=== PATIENT | male | born 1955 | race Caucasian/White ===

== ENCOUNTER 2018-06-13 08:04 | Emergency (ER) | payer OTHER, BC ==
[~2018-06-13] VITALS: Ht 177.8 cm; Wt 80.8 kg
[2018-06-13] MEDS ORDERED: ONDANSETRON ODT 4 MG ONE (08:29)
[2018-06-13] MEDS ORDERED: KETOROLAC 30 MG/1 ML ONE (08:29)
[2018-06-13] MEDS ORDERED: ONDANSETRON ODT 4 MG PO ONE (08:30)
[2018-06-13] MEDS ORDERED: KETOROLAC 30 MG/1 ML IM ONE (08:30)
[2018-06-13 08:56] LABS: BASOPHILS # (AUTO) 0.04 x10^3/uL (0-0.1); BASOPHILS % (AUTO) 1 % (0-1); EOSINOPHILS # (AUTO) 0.05 x10^3/uL (0-0.4); EOSINOPHILS % (AUTO) 1 % (1-7); LYMPHOCYTES % (AUTO) 17 % (22-44); MD NO; MEAN CORPUSCULAR HEMOGLOBIN 30.7 pg (27.5-34.5); MEAN CORPUSCULAR HGB CONC 33.4 g/dL (33.2-36.2); MEAN CORPUSCULAR VOLUME 91.9 fL (81-97); MEAN PLATELET VOLUME 7.3 fL (7.4-10.4); MONOCYTES # (AUTO) 0.64 x10^3/uL (0.2-0.8); MONOCYTES % (AUTO) 7 % (2-9); NEUTROPHILS % (AUTO) 75 % (42-75); PLATELET COUNT 347 x10^3/uL (130-400); RED BLOOD COUNT 5.29 x10^6/uL (4.38-5.82); RED CELL DISTRIBUTION WIDTH 14.4 % (9.4-14.8)
[2018-06-13 09:06] LABS: ALANINE AMINOTRANSFERASE 32 U/L (12-78); ALBUMIN 4.2 g/dL (3.4-5.0); ANION GAP 5 mmol/L (5-15); CALCIUM 9.3 mg/dL (8.5-10.1); CHLORIDE 107 mmol/L (98-107); CREATININE 0.93 mg/dL (0.7-1.3)
[2018-06-13 09:08] LABS: ALKALINE PHOSPHATASE 72 U/L (45-117); BILIRUBIN,TOTAL 0.8 mg/dL (0.2-1.0); TOTAL PROTEIN 7.4 g/dL (6.4-8.2)
[2018-06-13 10:43] LABS: MICROSCOPIC NOT IND
[2018-06-13 10:47] LABS: CULTURE INDICATED? NO
[2018-06-13 11:19] VITALS: BP 158/105
== END 2018-06-13 11:22 | disposition home or self-care (01) ==
LOC: ED 10:30
DX: M46.1 Sacroiliitis, not elsewhere classified (principal)
CPT/HCPCS: 36415; 72110; 80053; 81003; 85025; 96372; 99284; J1885; Q0162